=== PATIENT | female | born 1930 | race Caucasian/White ===

== ENCOUNTER 2016-08-20 16:09 | Emergency (ER) | payer MEDICAID, MEDICARE ==
[~2016-08-20] VITALS: Ht 157.5 cm; Wt 59.1 kg
[2016-08-20] VITALS (7 sets, daily range): BP systolic 162–203; BP diastolic 51–80; PULSE 57–84; RESP 13–20; O2SAT 94–99
--- NOTE | 2016-08-20 17:19 | ED.REPORT ---
HPI-General Illness Date of Service Aug 20, 2016 ED Provider: Enrike Almonte MD An 85 year old female with a history of A-fib, depression and dementia presents to the ED from [facility] assisted care [facility] facility complaining of hypertension that began earlier this afternoon. Patient's daughter reports lightheadedness, weakness, hypersomnia, and worsening depression. Her finisher denture recorded her BP at 185/70 this morning. She currently takes 40 mg of Lisinopril and 25 mg of Carbatrol. Daughter denies any dysphasia, SOB, chest pain, abdominal pain, dysuria or any other changes from her baseline. Nursing Notes Stated Complaint: AFIB, LETHARGIC Chief Complaint: General Complaint Nursing Notes Reviewed: Yes Allergies: Coded Allergies: benazepril (Verified Allergy, Unknown, 08/20/16) Uncoded Allergies: SULFA (Allergy, Unknown, 08/20/16) Scheduled Cephalexin (Keflex) 500 Mg Capsule 500 MG PO QID General Time Seen by MD: 16:58 Transferred From: [facility] Chief Complaint Weakness Hx Obtained From: Patient, Daughter Arrived By: Walk-in Sudden in Onset?: No Onset Occurred: 1 - 4 hours ago Symptom Duration: Since onset Associated with: Reports: Headache, Weakness, Denies: Abdominal pain, Chest pain, Cough, Shortness of breath Pertinent Negative: Pt denies other symptoms Recent Healthcare: No recent doctor visit, No recent hospitalization Past Medical History Past Medical History Dementia Atrial fibrillation Stroke - 2013 Chronic back pain Smoking History Unknown if Ever Smoker Social History Other Social History: Good social support, Lives in residential Ambulatory Status Wheelchair Review of Systems Daughter reports hypersomnia Full Review of Systems Constitutional: Reports: Lethargy, Malaise, Weakness - generalized, Denies: Chills, Fever Respiratory: Denies: Non-productive cough, Shortness of breath Cardiovascular: Denies: Chest pain GI: Denies: Abdominal pain Female: Denies: Dysuria Neurologic: Denies: Change LOC, Headache Psychiatric: Reports: Depression, Denies: Insomnia Complete sys rev & neg: except as marked. Physical Exam Vital Signs Vital Signs Date Time Temp Pulse Resp B/P Pulse Ox O2 Delivery O2 Flow Rate FiO2 08/20/16 20:30 64 20 186/70 96 Room Air 08/20/16 20:11 84 203/70 94 Room Air 08/20/16 18:17 78 16 168/70 99 Nasal Cannula 2 08/20/16 17:57 82 16 162/80 98 Nasal Cannula 2 08/20/16 16:55 37.2 68 18 188/66 99 08/20/16 16:52 37.2 68 18 188/66 99 Room Air 08/20/16 16:19 57 13 198/51 98 Room Air Initial VS: Reviewed Extremities: Vascular intact, Neuro intact, No swelling, No tenderness Skin: Warm, Dry, No cyanosis Psychiatric: Mood/affect normal, Behavior normal, Normal thought content General/Constitutional: Awake, Alert, No acute distress Head / Eyes: Atraumatic, Normocephalic, PERRL Respiratory / Chest: Atraumatic, Breath sounds NL, Breath sounds = bilat Cardiovascular: Heart rate NL, Regular rhythm, Heart sounds NL Abdomen: Atraumatic, Soft, Non-tender, No guarding, No rebound Neurologic: Oriented X3, Speech NL, No motor deficits, No sensory deficits, CN II - XII intact Interpretation & Diagnostics Lab Results Interpretation Result Diagram: 08/20/16 1725 08/20/16 1725 Test 08/20/16 17:25 08/20/16 18:15 White Blood Count 9.9th/mm3 (3.8-10.1) Red Blood Count 3.38mil/mm3 (3.90-5.20) Hemoglobin 11.2g/dL (12.0-15.6) Hematocrit 32.1% (35.0-46.0) Mean Corpuscular Volume 95.0fL (81-100) Mean Corpuscular Hemoglobin 33.1pg (27.0-35.0) Mean Corpuscular Hemoglobin Concent 34.9% (32.0-37.0) Red Cell Distribution Width 14.9% (12.3-15.4) Platelet Count 206bil/L (150-400) Neutrophils (%) (Auto) 63.7% (40-74) Lymphocytes (%) (Auto) 18.9% (14-46) Monocytes (%) (Auto) 12.6% (4-12) Eosinophils (%) (Auto) 3.5% (0-5) Basophils (%) (Auto) 0.7% (0-3) Hematology Comments Sodium Level 142mEq/L (134-144) Potassium Level 4.0mEq/L (3.5-5.2) Chloride Level 103mEq/L (97-108) Carbon Dioxide Level 27mmol/L (18-29) Blood Urea Nitrogen 17mg/dL (8-27) Creatinine 0.98mg/dL (0.57-1.00) Estimat Glomerular Filtration Rate 77mL/min (>59) Glucose Level 88mg/dL (60-99) Calcium Level 8.9mg/dL (8.5-10.1) Magnesium Level 2.1mg/dL (1.6-2.6) Total Bilirubin 0.6mg/dL (0.0-1.2) Aspartate Amino Transf (AST/SGOT) 19U/L (0-50) Alanine Aminotransferase (ALT/SGPT) 9U/L (0-32) Alkaline Phosphatase 83U/L (25-165) Troponin T < 0.010ug/L (0.0-0.011) Pro-B-Type Natriuretic Peptide 4000pg/mL (0-738) Total Protein 6.5g/dL (6.4-8.4) Albumin 3.9g/dL (3.4-5.0) Thyroid Stimulating Hormone (TSH) 2.740uIU/mL (0.450-4.500) Hold Pollock Top Tube Received (Received) Urine Color Yellow (YELLOW) Urine Appearance Hazy (CLEAR,HAZY) Urine pH 8.0 (5.0-8.0) Urine Specific [place] 1.015 (1.003-1.035) Urine Protein Negativemg/dL (NEG,TRACE) Urine Glucose (UA) Negativemg/dL (NEGATIVE) Urine Ketones Negativemg/dL (NEGATIVE) Urine Occult Blood Negative (NEGATIVE) Urine Nitrite Positive (NEGATIVE) Urine Bilirubin Negative (NEGATIVE) Urine Urobilinogen Normalmg/dL (NORMAL) Urine Leukocyte Esterase Small (NEGATIVE) Urine RBC 0-2/hpf (0-2) Urine WBC >50/hpf (0-5) Urine Epithelial Cells Few/hpf (NONE-MOD) Urine Crystals None seen (NONE SEEN) Urine Bacteria Many/hpf (NONE-FEW) Urine Hyaline Casts None/lpf (NONE) Urine Granular Casts None seen (NONE SEEN) Urine Waxy Casts None seen (NONE SEEN) Urine Red Blood Cell Casts None seen (NONE SEEN) Urine White Blood Cell Casts None seen (NONE SEEN) Urine Mucus None seen (None Seen) Urine Trichomonas None seen (NONE SEEN) Urine Yeast None (NONE SEEN) Urinalysis Comment None Urine Culture Reflexed Indicated ECG Interpretation ECG Interpretation: Sinus Rhythm TAC No ST changes P wave V1 through V3 Time: 17:40 Interpreted by: ED physician X-Ray Chest Interpretation Chest Xray Interpretation: IMPRESSION: Acute disease is seen in the semiupright portable chest. Dictated by: Solomon Blackwood M.D. on 08/20/2016 at 18:43 Interpretation / Wet Read by: Interpret - Radiologist Re-Eval/Medical Decision Med Decision/Clinical Course 85-year-old female history of hypertension, dementia presenting complaining of high blood pressure and weakness. Blood pressure reportedly assisted living facility with systolic 200 today. Therefore they decided to come in for evaluation. Blood pressure was low 200s systolic here. Only complaint was generalized weakness. Urine positive for UTI. Blood pressure came down with hydralazine 5 mg 2. She had no headache and no neurological deficits and was at her baseline mental status therefore she opted out of CT brain in consultation with daughter. Labs unremarkable. I discussed with the patient given her weakness and her urinary tract infection we can certainly admit her though she preferred to go back to the assisted-living facility. Daughter agreed. Gave one dose of Rocephin. We will treat with oral antibiotics as below. Return precautions given. Recommend she follow up with primary doctor 1-2 days for repeat blood pressure check and reevaluation. Time of Eval: 19:11 Patient Status: Condition improved Re-Evaluation/Progress Note: Patient is rechecked. Daughter is informed of her X-ray results, EKG results and diagnosis. All of the patient's questions are addressed. She understands and agrees with the treatment plan. Counseled Regarding: Diagnosis, Lab results, Need for follow-up, When/why to return to ED Discharge & Departure Primary Impression: Hypertension Hypertension type: unspecified secondary hypertension Hypertension goal: unspecified goal Qualified Code: I15.9 - Secondary hypertension, unspecified Additional Impression: Urinary tract infection Urinary tract infection type: site unspecified Hematuria presence: without hematuria Qualified Code: N39.0 - Urinary tract infection, site not specified Disposition: Home Discharge Condition All VS Reviewed: Yes Condition: Stable Additional Instructions: Thank you for trusting us with your care this evening. Your EKG and chest x-ray are reassuring. Your lab results revealed a urinary tract infection and I believe this is the cause of your weakness. Please schedule a follow up appointment with your primary care physician tomorrow. I recommend that you consider a change in blood pressure medication. Take Keflex as prescribed. Please return to the emergency department for any new or worsening conditions including worsening dizziness or fever. Referrals: Gelacio Munoz MD (PCP) Reece Attestation Portions of this note were transcribed by Gerardo Palma. I, Dr. Almonte personally performed the history, physical exam and medical decision-making; I reviewed and confirmed the accuracy of the information in the transcribed note. Signed by: Reece Lucas, 08/20/161999. copies to: Gelacio Munoz MD, Ben M MD Aug 20, 2016 17:19 GERARDO PALMA Aug 20, 2016 17:23
[2016-08-20] MEDS ORDERED: hydrALAZINE 20 mg/mL Inj IV ONE ×2 (17:25→20:15)
[2016-08-20 17:57] LABS: BASOPHILS % (AUTO) 0.7 % (0-3); EOSINOPHILS % (AUTO) 3.5 % (0-5); MONOCYTES % (AUTO) 12.6 % (4-12); Mean Corpuscular Hemoglobin 33.1 pg (27.0-35.0); NEUTROPHILS % (AUTO) 63.7 % (40-74); Platelet Count 206 bil/L (150-400)
[2016-08-20 18:04] LABS: Magnesium 2.1 mg/dL (1.6-2.6)
[2016-08-20 18:08] LABS: TROPONIN T < 0.010 ug/L (0.0-0.011)
[2016-08-20 18:39] LABS: APPEARANCE,URINE HAZY (CLEAR,HAZY); COLOR,URINE YELLOW (YELLOW); OCCULT BLOOD,URINE NEGATIVE (NEGATIVE); UROBILINOGEN,URINE NORMAL (NORMAL)
--- NOTE | 2016-08-20 18:46 | DRSVH ---
PROCEDURE: X-RAY CHEST ONE VIEW, PORTABLE ([id number]) INDICATIONS: chest pain TECHNIQUE: One view of the chest was acquired. COMPARISON: None. FINDINGS: Surgical changes and devices: cafeteria monitor leads are seen over the chest. Lungs and pleura: No pleural effusions or pneumothorax. There is elevated right hemidiaphragm. Pulmo nary vasculature is considered normal. Lungs are considered clear. Mediastinum: Mediastinal contours appear normal. Heart size is normal. Bones and chest wall: Degenerative changes are present in the shoulder joints worse on the left than the right. No suspicious bony lesions. Overlying soft tissues appear unremarkable. IMPRESSION: Acute disease is seen in the semiupright portable chest. Dictated by: Solomon Blackwood M.D. on 08/20/2016 at 18:43 Approved by: Solomon Blackwood M.D. on 08/20/2016 at 18:44
[2016-08-20] MEDS ORDERED: CEPH-512 PO (19:12)
[2016-08-20] MEDS ORDERED: cefTRIAXone Inj 1,000 MG in Dextrose 5% Minibag Plus 50 ML IV ONE (19:20)
== END 2016-08-20 20:45 | disposition home or self-care (01) ==
LOC: SED 16:09
DX: I15.9 Secondary hypertension, unspecified (principal); N39.0 Urinary tract infection, site not specified; B96.29 Other Escherichia coli [E. coli] as the cause of diseases classified elsewhere; R53.1 Weakness; R42 Dizziness and giddiness; G47.10 Hypersomnia, unspecified; I48.91 Unspecified atrial fibrillation; F32.9 Major depressive disorder, single episode, unspecified; F03.90 Unspecified dementia, unspecified severity, without behavioral disturbance, psychotic disturbance, mood disturbance, and anxiety; Z86.73 Personal history of transient ischemic attack (TIA), and cerebral infarction without residual deficits; Z88.8 Allergy status to other drugs, medicaments and biological substances
CPT/HCPCS: 36415; 71010; 80053; 81000; 82948; 83735; 83880; 84443; 84484; 85025; 87086; 87088; 87186; 93005; 96365; 96375; 96376; 99285; G0463; J0360; J0696